=== PATIENT | female | born 1950 | race Caucasian/White ===

== ENCOUNTER → 2016-11-08 | Outpatient (CLI) | payer BC | LOC: BMCIMAGING 14:24 | PROVIDERS: ATTEND Orthopaedic Surgery | PROC: 3E0U33Z Introduction of Anti-inflammatory into Joints, Percutaneous Approach (ICD-10-PCS; principal; 2016-11-08) | DX: M25.551 Pain in right hip (principal) ==

== ENCOUNTER → 2017-01-08 | Outpatient (CLI) | payer BC | LOC: CIMAGING 08:14 | PROVIDERS: ATTEND Orthopaedic Surgery | DX: M16.11 Unilateral primary osteoarthritis, right hip (principal); M12.88 Other specific arthropathies, not elsewhere classified, other specified site; M25.861 Other specified joint disorders, right knee; M25.862 Other specified joint disorders, left knee | CPT/HCPCS: 72192-PO ==

== ENCOUNTER 2017-01-22 07:57 | Inpatient (IN) | payer BC ==
--- NOTE | 2017-01-22 06:50 | PDHPUP ---
History & Physical Update H&P update statement: This history and physical update is based on an assessment of the patient which was completed after admission or registration (within 24 hours), but prior to the surgery/procedure.
[~2017-01-22 07:57] MED LIST: LIDOCAINE 1% 5 ML, BUPIVACAINE 0.5% 5 ML, morphINE PF 5 MG in SYRINGE 0 ML IU ONE; NS IV ONE; TRANEXAMIC ACID IV ONE
[2017-01-22] MEDS ORDERED: MAGNESIUM HYDROXIDE 30 ML UDCUP PO PRN (08:32)
[2017-01-22] MEDS ORDERED: TEMAZEPAM 15 MG CAP PO PRN (08:32)
[2017-01-22] MEDS ORDERED: ACETAMINOPHEN 325 MG TAB PO ONE (08:32)
[2017-01-22] MEDS ORDERED: diphenhydrAMINE 25 MG CAP PO PRN (08:32)
[2017-01-22] MEDS ORDERED: DIAZEPAM 5 MG TAB PO PRN (08:32)
[2017-01-22] MEDS ORDERED: ceFAZolin 2 GM/DEXTROSE 100 ML IV ONE (08:32)
[2017-01-22] MEDS ORDERED: POLYETHYLENE GLYCOL 3350 17 GM PKT PO PRN (08:32)
[2017-01-22] MEDS ORDERED: ONDANSETRON DISINTEGRATING 4 MG TAB PO PRN (08:32)
[2017-01-22] MEDS ORDERED: BISACODYL 10 MG SUPP PR PRN (08:32)
[2017-01-22] MEDS ORDERED: LACTULOSE 20 GM/30 ML UDCUP PO PRN (08:32)
[2017-01-22] MEDS ORDERED: DIPHENOXYLATE/ATROPINE LOMOTIL 1 TAB PO PRN (08:32)
[2017-01-22] MEDS ORDERED: ONDANSETRON 4 MG/2 ML VIAL IVP PRN (08:32)
[2017-01-22] MEDS ORDERED: PROMETHAZINE HCL 25 MG/ML INJ IVP PRN ×2 (08:32→11:25)
[2017-01-22] MEDS ORDERED: PHARMACY PAIN CONSULT 1 EA MISC PRN (08:32)
[2017-01-22] MEDS ORDERED: FAMOTIDINE 20 MG TAB PO ONE (08:32)
[2017-01-22] MEDS ORDERED: PROMETHAZINE HCL 25 MG SUPPR PR PRN (08:32)
[2017-01-22] MEDS ORDERED: METOCLOPRAMIDE 10 MG/2 ML VIAL IVP PRN (08:32)
[2017-01-22] MEDS: LR 1,000 ML IV SCH ×3 (09:12→20:56)
[2017-01-22] MEDS ORDERED: NS IV ONE (09:30)
[2017-01-22] MEDS ORDERED: TRANEXAMIC ACID IV ONE (09:30)
[2017-01-22] MEDS ORDERED: CALCIUM CHLORIDE 1 GM/10 ML INJ ONE ×2 (09:33→10:08)
[2017-01-22] MEDS ORDERED: THROMBIN (BOVINE) 5,000 UNIT VIAL TP ONE ×2 (09:33→10:08)
[2017-01-22] MEDS ORDERED: ceFAZolin 1 GM/5 ML SYR ONE ×2 (09:34→10:08)
--- NOTE | 2017-01-22 09:42 | PDANEPAE ---
ANE History of Present Illness r hip oa ANE Past Medical History - Cardiovascular History Hx Hypertension: No Hx Arrhythmias: No Hx Chest Pain: No Hx Coronary Artery / Peripheral Vascular Disease: No Hx CHF / Valvular Disease: No Hx Palpitations: No - Pulmonary History Hx COPD: No Hx Asthma/Reactive Airway Disease: No Hx Recent Upper Respiratory Infection: No Hx Oxygen in Use at Home: No Hx Sleep Apnea: No Sleep Apnea Screening Result - Last Documented: Negative - Neurologic History Hx Cerebrovascular Accident: No Hx Seizures: No Hx Dementia: No Neurologic History Comment: migraine phenomena-visual distortion - Endocrine History Hx Diabetes: No - Renal History Hx Renal Disorders: No - Liver History Hx Hepatic Disorders: No - Neurological & Psychiatric Hx Hx Neurological and Psychiatric Disorders: Yes Neurological / Psychiatric History Comment: "foraminal narrowing" occ L side numbness -face, arm and sometime leg - Cancer History Hx Cancer: No - Congenital Disorder History Hx Congenital Disorders: No - GI History Hx Gastrointestinal Disorders: No - Other Health History Other Health History: R hip OA. takes antihistamine/decongestant for H/A, congestion (barometric pressure). Tinnitus - Chronic Pain History Chronic Pain: No - Surgical History Prior Surgeries: T.L. 25 yrs ago. thyroglossal duct cyst ANE Review of Systems - Exercise capacity Exercise capacity: >=4 METS METS (RN): 4 METS - Systems Constitutional: Reports: no symptoms EENMT: Reports: no symptoms Cardiac: Reports: no symptoms Respiratory: Reports: no symptoms Muscolosketal: Reports: no symptoms Neurological: Reports: paresthesia Hematologic/Lymphatic: Reports: no symptoms ANE Patient History - Allergies Allergies/Adverse Reactions: No Known Allergies Allergy (Verified 01/09/17 10:02) - Home Medications Home Medications: Ambelz 1/0.5 1 each PO DAILY 01/09/17 [Last Taken Unknown] Aspirin [Aspirin 81mg (*)] 81 mg PO DAILY 01/09/17 [Last Taken Unknown] Calcium Carbonate/Vitamin D3 [CALCIUM 600 + VIT D TABLET] 1 each PO BID [Last Taken Unknown] Herbals/Supplements -Info Only 1 each PO DAILY 01/09/17 [Last Taken Unknown] Loratadine 10 mg PO DAILY 01/09/17 [Last Taken Unknown] - NPO status NPO Since - Liquids (Date): 01/21/17 NPO Since - Liquids (Time): 05:00 NPO Since - Solids (Date): 01/21/17 NPO Since - Solids (Time): 19:00 - Anes Hx Anes Hx: post operative nausea - Smoking Hx Smoking Status: Never smoked - Alcohol Use Alcohol Use: Occasionally ANE Labs/Vital Signs - Vital Signs Blood Pressure: 124/85 Heart Rate: 74 Respiratory Rate: 16 O2 Sat (%): 96 Height: 167.64 cm Weight: 56.699 kg ANE Physical Exam - Airway Mallampati Score: Class 1 Mouth exam: normal dental/mouth exam - Pulmonary Pulmonary: no respiratory distress - Cardiovascular Cardiovascular: regular rate and rhythym - ASA Status ASA Status: I ANE Anesthesia Plan Anesthesia Plan: spinal
[2017-01-22] MEDS ORDERED: MIDAZOLAM 2 MG/2 ML VIAL IVP ONE (09:44)
[2017-01-22] MEDS ORDERED: LIDOCAINE 2% 5 ML SDV ONE (10:08)
[2017-01-22] MEDS ORDERED: PROPOFOL/EMULSION 500 MG/50 ML BOTTLE IV ONE (10:08)
[2017-01-22] MEDS ORDERED: MIDAZOLAM 2 MG/2 ML VIAL ONE (10:15)
[2017-01-22] MEDS ORDERED: ROPI/epINEPH/KETOROLAC/morphINE IU ONE (10:30)
[2017-01-22] MEDS ORDERED: DEXAMETHASONE 4 MG/ML VIAL ONE (10:53)
[2017-01-22] MEDS ORDERED: ONDANSETRON 4 MG/2 ML VIAL ONE ×2 (10:53→12:55)
[2017-01-22] MEDS ORDERED: fentaNYL 100 MCG/2 ML INJ ONE ×2 (10:54→12:17)
[2017-01-22] MEDS ORDERED: NALOXONE HCL 0.4 MG/ML INJ IVP PRN (11:25)
[2017-01-22] MEDS ORDERED: LABETALOL HCL 50 MG/10 ML SYR IVP PRN (11:25)
[2017-01-22] MEDS ORDERED: fentaNYL 100 MCG/2 ML INJ IVP PRN (11:25)
[2017-01-22] MEDS ORDERED: PHENYLEPHRINE HCL 100 MCG/ML SYR ONE (11:52)
[2017-01-22] MEDS: fentaNYL 100 MCG/2 ML INJ IVP PRN ×2 (12:19→12:24)
[2017-01-22] MEDS ORDERED: HYDROmorphONE/DILAUDID 1 MG/ML SYR ONE (12:23)
[2017-01-22] MEDS: HYDROmorphONE/DILAUDID 1 MG/ML SYR IVP PRN ×3 (12:27→13:28)
[2017-01-22] MEDS: SENNOSIDES/DOCUSATE SODIUM TAB PO SCH ×2 (13:30→20:50)
[2017-01-22] MEDS: ACETAMINOPHEN 325 MG TAB PO SCH ×3 (13:31→23:12)
[2017-01-22] MEDS: ceFAZolin 2 GM/DEXTROSE 100 ML IV SCH ×2 (14:32→20:53)
[2017-01-22] MEDS: oxyCODONE IR 5 MG TAB PO PRN ×2 (17:32→23:11)
[2017-01-22] MEDS: CYCLOBENZAPRINE 10 MG TAB PO PRN (20:44)
[2017-01-22] MEDS: FAMOTIDINE 20 MG TAB PO SCH (20:50)
[2017-01-22] MEDS: ASPIRIN 325 MG TAB PO SCH (20:51)
[2017-01-23] MEDS: CYCLOBENZAPRINE 10 MG TAB PO PRN (04:45)
[2017-01-23] MEDS: ACETAMINOPHEN 325 MG TAB PO SCH ×2 (04:45→13:05)
[2017-01-23] MEDS: LR 1,000 ML IV SCH (04:46)
--- NOTE | 2017-01-23 07:14 | PDIAF ---
- Diagnosis Diagnosis: right hip djd Code Status: Full Code - Medication Management Discharge Medications: Medications to Continue on Transfer Ambelz 1/0.5 1 each PO DAILY 01/09/17 [Last Taken Unknown] Aspirin [Aspirin 81mg (*)] 81 mg PO DAILY 01/09/17 [Last Taken Unknown] Calcium Carbonate/Vitamin D3 [CALCIUM 600 + VIT D TABLET] 1 each PO BID [Last Taken Unknown] Herbals/Supplements -Info Only 1 each PO DAILY 01/09/17 [Last Taken Unknown] Loratadine 10 mg PO DAILY 01/09/17 [Last Taken Unknown] Aspirin [Aspirin 325 mg (*)] 325 mg PO DAILY #0 tab 01/23/17 [Last Taken Unknown ] Cyclobenzaprine [Flexeril 10 MG (*)] 10 mg PO Q8HRS PRN #40 tab 01/23/17 [Last Taken Unknown] oxyCODONE IR [Oxycodone Ir (*)] 5 - 10 mg PO Q3HRS PRN #70 tab 01/23/17 [Last Taken Unknown] Discharge Medications: Refer to the Discharge Home Medication list for PRN reason. - Orders Services needed: Physical Therapy Diet Recommendation: no restrictions on diet Diet Texture: Regular Texture Diet Activity/Weight Bearing Restrictions: wbat. anterior hip precautions. daily dressing changes. may shower without bandage. no soaking or immersion. f/u at two weeks. aspirin 325 mg po daily. seek attn for drainage, shortness or breath, calf pain, or other focal complaint - Follow Up Care Current Providers and Referrals: Kt Almonte MD [Primary Care Provider] -
--- NOTE | 2017-01-23 07:26 | GDS ---
[f rep st] DISCHARGE SUMMARY ADMIT DIAGNOSIS: Right hip degenerative joint disease. DIAGNOSIS SAME: Right hip degenerative joint disease. PROCEDURE: Right total hip arthroplasty. HISTORY OF PRESENT ILLNESS: The patient is a 66-year-old woman with end-stage arthritis to her righ t hip. Clinical and radiographic features are consistent with hip arthritis. She has failed all at tempts at conservative management. I have, therefore, recommended total hip replacement. HOSPITAL COURSE: The patient was admitted to the hospital floor after uncomplicated total hip arthr oplasty. She tolerated the procedure well. Postoperatively, she had no calf swelling or tenderness . Dressings are clean, dry, and intact. She quickly progressed with physical therapy and has been cleared for discharge. DISCHARGE ACTIVITY: She is weightbearing as tolerated. Anterior hip precautions. Daily dressing c hanges. May shower without the bandage; no soaking or immersion. OK hose x2 weeks. Aspirin 325 m g p.o. daily. DISCHARGE MEDICATIONS: Including aspirin, cyclobenzaprine, and oxycodone. FOLLOWUP: Two weeks. Seek attention for increasing calf pain, drainage from the wound, redness, or further focal complaint. /[id number]/MODL
[2017-01-23] MEDS: ASPIRIN 325 MG TAB PO SCH (07:49)
[2017-01-23] MEDS: SENNOSIDES/DOCUSATE SODIUM TAB PO SCH (07:49)
[2017-01-23] MEDS: FAMOTIDINE 20 MG TAB PO SCH (07:50)
[2017-01-23] MEDS: oxyCODONE IR 5 MG TAB PO PRN ×2 (07:50→14:39)
[2017-01-23 12:23] VITALS: BP 99/65; PULSE 77; RESP 16; TEMP 97.5; O2SAT 95
== END 2017-01-23 15:58 | disposition home health service (06) | DRG 470 ==
LOC: F3N 07:57
PROVIDERS: ADMIT Orthopaedic Surgery; ATTEND Orthopaedic Surgery
PROC: 0SR9049 Replacement of Right Hip Joint with Ceramic on Polyethylene Synthetic Substitute, Cemented, Open Approach (ICD-10-PCS; principal; 2017-01-22 10:00)
PROC: 8E0YXCZ Robotic Assisted Procedure of Lower Extremity (ICD-10-PCS; principal; 2017-01-22 10:00)
DX: M16.11 Unilateral primary osteoarthritis, right hip (principal); G43.909 Migraine, unspecified, not intractable, without status migrainosus
CPT/HCPCS: 97110-GP; 97116-GP; 97161-GP; 97165-GO; J0171; J0690; J1100; J1170; J1885; J2250; J2274; J2370; J2405; J2550; J2704; J2795; J3010

== ENCOUNTER → 2017-03-07 | Outpatient (CLI) | payer BC | LOC: BMCIMAGING 10:34 | PROVIDERS: ATTEND Orthopaedic Surgery | DX: Z47.1 Aftercare following joint replacement surgery (principal); Z96.641 Presence of right artificial hip joint ==

== ENCOUNTER → 2017-05-02 | Outpatient (CLI) | payer BC | LOC: BMCIMAGING 09:17 | PROVIDERS: ATTEND Orthopaedic Surgery | DX: Z09 Encounter for follow-up examination after completed treatment for conditions other than malignant neoplasm (principal); Z96.641 Presence of right artificial hip joint ==

== ENCOUNTER → 2017-09-07 | Outpatient (CLI) | payer OTHER, BC | LOC: BMCIMAGING 09:24 | PROVIDERS: ATTEND Physician Assistant | DX: Z47.1 Aftercare following joint replacement surgery (principal); Z96.641 Presence of right artificial hip joint ==

== ENCOUNTER → 2018-03-20 | Outpatient (CLI) | payer OTHER, BC | LOC: BMCIMAGING 09:27 | PROVIDERS: ATTEND Physician Assistant | DX: Z09 Encounter for follow-up examination after completed treatment for conditions other than malignant neoplasm (principal); Z96.641 Presence of right artificial hip joint ==

== ENCOUNTER → 2018-04-18 | Outpatient (CLI) | payer OTHER, BC | LOC: BMCIMAGING 15:05 | PROVIDERS: ATTEND Internal Medicine Rheumatology | DX: Z13.820 Encounter for screening for osteoporosis (principal); M85.852 Other specified disorders of bone density and structure, left thigh; Z96.641 Presence of right artificial hip joint ==